=== PATIENT | male | born 1955 | race Two or more races ===

== ENCOUNTER 2018-08-26 21:32 | Inpatient (IN) | payer OTHER ==
[~2018-08-26] VITALS: Ht 175.3 cm; Wt 81.2 kg
[~2018-08-26 21:32] MED LIST: ASPI-807 PO; BENA10TA9 PO; FURO40TA5 PO; GABA-534 PO; INSU100V28 IJ; POTA8TAB3 PO; TRAM50TA2 PO
[2018-08-27] VITALS (7 sets, daily range): BP systolic 102–159; BP diastolic 59–99
--- NOTE | 2018-08-27 00:20 | NUR ---
RN NOTES: ORIENTED PT TO UNIT POLICY AND HOURLY ROUNDING, ALL MEDICATIONS TAKEN AND WILL BE SENT TO PHARMACY. ORIENTED TO USE OF CALL LIGHT SYSTEM. CONNECTED TO CONTINUOUS PULSE OXIMETRY
--- NOTE | 2018-08-27 00:20 | NUR ---
TUBE BENDER HAND NOTES PATIENT ARRIVED ON THE UNIT AT 0009 VIA GURNEY. PATIENT IS A/O X3. ABLE TO VERBALIZE NEEDS. PATIENT HAS NO SIGNS OF RESPIRATORY DISTRESS. VITAL SIGNS UPON ADMISSION: BP 159/76, PULSE 69, RESPIRATORY RATE 17, TEMPERATURE 97.8, OXYGEN SATURATION 98%. IV SITE PATENT AND INTACT. URINAL WITHIN REACH. PATIENT ON OXYGEN VIA NASAL CANNULA AT 2 L. SAFETY PRECAUTIONS IMPLEMENTED. CALL LIGHT WITHIN REACH. WILL CONTINUE TO MONITOR PATIENT THROUGHOUT THE SHIFT.
--- NOTE | 2018-08-27 00:25 | NUR ---
RN NOTES: PT REFUSED TO REMOVED GLOVES (BLACK LEATHER GLOVES) ALSO NOTED BAND AID ON FINGERS, HE CLAIMED ITS DUE TO CHECKING BLOOD SUGAR
--- NOTE | 2018-08-27 00:30 | NUR ---
RN NOTES: PT REFUSED TAKING PICTURES OF SCROTUM AREA. PT CLAIMED TESTICLE IS SWOLLEN.
[2018-08-27] MEDS ORDERED: GABA600T12 PO (01:04)
[2018-08-27] MEDS ORDERED: ASPI-1169 PO (01:04)
[2018-08-27] MEDS ORDERED: INSU100V36 SQ (01:04)
[2018-08-27] MEDS ORDERED: DICL1KIT14 TP (01:04)
[2018-08-27] MEDS ORDERED: OMEP40CA37 PO (01:04)
[2018-08-27] MEDS ORDERED: INSU100I26 SQ (01:04)
[2018-08-27] MEDS ORDERED: METF-442 PO (01:04)
[2018-08-27] MEDS ORDERED: BENA20TA9 PO (01:04)
--- NOTE | 2018-08-27 01:12 | NUR ---
RN NOTES: MD MADE AWARE ABOUT PT'S ARRIVAL, PER MD HE WILL PUT ALL ORDERS. HOME MED LIST INPUTTED IN THE COMPUTER, INCLUDING VS, HT AND WT
[2018-08-27] MEDS ORDERED: TRAMADOL HCL 50 MG TABLET PO PRN (01:30)
[2018-08-27] MEDS ORDERED: ACETAMINOPHEN 325 MG TABLET PO PRN (02:00)
[2018-08-27] MEDS ORDERED: DEXTROSE 50%-WATER 50 ML DISP.SYRIN IV PRN (02:00)
[2018-08-27] MEDS ORDERED: IPRATROPIUM NEB FS 0.5 MG/2.5 ML AMPUL.NEB NEB PRN (02:00)
[2018-08-27] MEDS ORDERED: ALBUTEROL FS 2.5 MG/3 ML VIAL.NEB NEB PRN (02:00)
[2018-08-27] MEDS ORDERED: ONDANSETRON HCL/PF 4 MG/2 ML VIAL IVP PRN (02:00)
[2018-08-27] MEDS ORDERED: MORPHINE SULFATE INJ 2 MG/ML DISP.SYRIN IV PRN ×2 (02:00→14:00)
[2018-08-27] MEDS: BLOOD SUGAR DIAGNOSTIC 1 EACH STRIP IN SCH ×4 (06:10→21:50)
[2018-08-27] MEDS: INSULIN REGULAR, HUMAN 100 UNIT/ML 3 ML VIAL SQ PRN ×3 (06:11→17:38)
[2018-08-27 06:55] LABS: BASOPHILS % (AUTO) 0.7 % (0.0-2.0); EOSINOPHILS % (AUTO) 6.5 % (0.0-6.0); HEMATOCRIT 38 % (39-51); HEMOGLOBIN 12.6 g/dL (13.5-17.5); LYMPHOCYTES # (AUTO) 1.1 /CMM (0.8-4.8); LYMPHOCYTES % (AUTO) 19.5 % (20.0-44.0); MEAN CORPUSCULAR HGB CONC 33 g/dl (31.0-36.0); MEAN CORPUSCULAR VOLUME 99 fL (80-96); MONOCYTES # (AUTO) 0.5 /CMM (0.1-1.30); MONOCYTES % (AUTO) 9.7 % (2.0-12.0); NEUTROPHILS # (AUTO) 3.6 /CMM (1.8-8.9); NEUTROPHILS % (AUTO) 63.6 % (43.0-81.0); PLATELET COUNT (AUTO) 96 /CMM (150-450); RED BLOOD CELL COUNT(AUTO) 3.85 MIL/uL (4.5-6.0); WHITE BLOOD COUNT (AUTO) 5.6 K/uL (4.3-11.0)
--- NOTE | 2018-08-27 07:02 | NUR ---
MS RN NOTES PATIENT IN BED ALERT ORIENTED X 4. NO ACUTE DISTRESS NOTED. BREATHING UNLABORED. IV ACCESS PATENT AND INTACT, NO REDNESS OR SWELLING NOTED. SAFETY MEASURES IN PLACE. CALL LIGHT WITHIN REACH. WILL CONTINUE TO MONITOR ACCORDINGLY.
[2018-08-27 07:10] LABS: ALBUMIN 2.9 g/dL (3.4-5.0); BILIRUBIN,TOTAL 1.1 mg/dL (0.2-1.0); CALCIUM, SERUM 8.2 mg/dL (8.5-10.1); CREATININE 0.9 mg/dL (0.6-1.3); MAGNESIUM 1.3 mg/dL (1.8-2.4); PHOSPHORUS 3.3 mg/dL (2.5-4.9); POTASSIUM 4.1 mmol/L (3.5-5.1); TOTAL PROTEIN, SERUM 6.2 g/dL (6.4-8.2)
--- NOTE | 2018-08-27 07:32 | NUR ---
RN CLOSING NOTES PATIENT IS IN BED, AWAKE. PATIENT HAS NO SIGNS OF RESPIRATORY DISTRESS. PATIENT IS ABLE TO VERBALIZE NEEDS. URINAL WITHIN REACH. SAFETY PRECAUTIONS IMPLEMENTED. CALL LIGHT WITHIN REACH. WILL ENDORSE TO ONCOMING AM RN.
[2018-08-27 07:39] LABS: THYROID STIMULATING HORMONE 1.073 uIU/mL (0.358-3.74)
[2018-08-27] MEDS: PANTOPRAZOLE 40 MG TABLET.DR PO SCH (08:25)
[2018-08-27] MEDS: ASPIRIN 81 MG TAB.CHEW PO SCH (08:26)
[2018-08-27] MEDS: DOCUSATE SODIUM 100 MG CAPSULE PO SCH ×2 (08:26→17:03)
[2018-08-27] MEDS: GABAPENTIN 300 MG CAPSULE PO SCH ×3 (08:26→17:34)
[2018-08-27] MEDS: FLUTICASONE/VILANTEROL 1 EACH BLST.W.DEV IH SCH (08:26)
[2018-08-27] MEDS: METFORMIN 500 MG TABLET PO SCH ×2 (08:27→17:03)
[2018-08-27] MEDS: BENAZEPRIL HCL 20 MG TABLET PO SCH (08:27)
[2018-08-27 08:46] LABS: EOSINOPHILS % (MANUAL) 6 % (0-4); LYMPHOCYTES % (MANUAL) 12 % (16-48); MONOCYTES % (MANUAL) 6 % (0-11.0); NEUTROPHILS % (MANUAL) 76 (42-76)
[2018-08-27] MEDS ORDERED: FUROSEMIDE 40 MG/4 ML VIAL IV SCH (09:00)
[2018-08-27] MEDS ORDERED: FUROSEMIDE 20 MG/2 ML VIAL IV SCH (12:30)
[2018-08-27] MEDS: Magnesium 1GM/D5W 100ML PREMIX 100 ML IV SCH ×4 (12:32→15:56)
[2018-08-27] MEDS: HYDROCODONE/APAP 5/325MG 1 EACH TABLET PO PRN (12:33)
[2018-08-27] MEDS: PREGABALIN 100 MG CAPSULE PO SCH ×2 (13:47→17:34)
--- NOTE | 2018-08-27 15:08 | NUR ---
MS RN NOTES ECHOCARDIOGRAM DONE, RESULT EF 15-20%. NOTIFIED NICK MORRISON. NO NEW ORDERS MADE AT THIS TIME.
--- NOTE | 2018-08-27 15:08 | NUR ---
INITIAL ECHO FINDINGS SHOWED EF 15-20%~. ADVISED PRELIM RESULTS TO JULIAN YOON) AND DR. HULL.
[2018-08-27] MEDS: FUROSEMIDE 20 MG/2 ML VIAL IV SCH (17:03)
--- NOTE | 2018-08-27 19:00 | NUR ---
MS RN NOTES PATIENT IN BED ALERT ORIENTED X 4. NO ACUTE DISTRESS NOTED. BREATHING UNLABORED. IV ACCESS PATENT AND INTACT, NO REDNESS OR SWELLING NOTED.DUE MEDICATIONS GIVEN, NO ASE NOTED. NEEDS ATTENDED AND ANTICIPATED. KEPT CLEAN DRY AND COMFORTABLE. ENCOURAGE TURNING AND REPOSITIONING EVERY [address] MEAS[address] IN PL[address]. CALL LIGHT WITHIN REACH. ENDORSED TO NIGHT NURSE FOR CONTINUITY OF CARE.
--- NOTE | 2018-08-27 19:40 | NUR ---
MS RN NOTES RECEIVED ON BED WATCHING TV PROGRAM,NO SOB,O2 IN USED ON AND OFF TO KEEP O2 SAT ABOVE 90%.SALINE LOCK RIGHT HAND INTACT AND PATENT.ABLE TO VERBALIZED NEEDS,CALL LIGHT IN REACH,NEEDS ANTICIPATED.
[2018-08-27] MEDS: INSULIN GLARGINE, 100 UNIT/ML CARTRIDGE SQ SCH (21:59)
--- NOTE | 2018-08-27 22:01 | NUR ---
MS RN NOTES ACCU-CHECK BLOOD SUGAR CHECK 88,ASYMPTOMATIC,NON DIAPHORETIC,EASILY AROUSABLE TO VERBAL STIMULI.ORANGE JUICE GIVEN.NO INSULIN COVERAGE PER SLIDING SCALE.LANTUS 40 UNITS HELD FOR LOW BLOOD SUGAR
--- NOTE | 2018-08-28 02:00 | NUR ---
MS RN NOTES SLEEPING,KEPT WARM AND COMFORTABLE.
--- NOTE | 2018-08-28 04:30 | NUR ---
MS RN NOTES OOB TO BSC,RADIO FREQUENCY DESIGN ENGINEER AT BEDSIDE CHANGING BED LINEN.
--- NOTE | 2018-08-28 05:30 | NUR ---
MS RN NOTES ACCU-CHECK BLOOD SUGAR CHECK 124,NO INSULIN COVERAGE PER SLIDING SCALE.
[2018-08-28] MEDS: BLOOD SUGAR DIAGNOSTIC 1 EACH STRIP IN SCH ×4 (05:31→22:19)
--- NOTE | 2018-08-28 06:30 | NUR ---
MS RN NOTES SLEPT WELL.DENIES ANY DISCOMFORTS,BLOOD SUGAR WITH IN NORMAL LIMITS.ASSIST WITH ADL'S.IN NO ACUTE DISTRESS.WILL ENDORSE TO DAY NURSE FOR VELAM.
[2018-08-28 06:36] LABS: BASOPHILS % (AUTO) 0.4 % (0.0-2.0); EOSINOPHILS % (AUTO) 6.5 % (0.0-6.0); HEMATOCRIT 39 % (39-51); HEMOGLOBIN 12.8 g/dL (13.5-17.5); LYMPHOCYTES # (AUTO) 1.6 /CMM (0.8-4.8); LYMPHOCYTES % (AUTO) 24.2 % (20.0-44.0); MEAN CORPUSCULAR HGB CONC 33 g/dl (31.0-36.0); MEAN CORPUSCULAR VOLUME 98 fL (80-96); MONOCYTES # (AUTO) 0.6 /CMM (0.1-1.30); MONOCYTES % (AUTO) 9.5 % (2.0-12.0); NEUTROPHILS # (AUTO) 3.8 /CMM (1.8-8.9); NEUTROPHILS % (AUTO) 59.4 % (43.0-81.0); PLATELET COUNT (AUTO) 98 /CMM (150-450); RED BLOOD CELL COUNT(AUTO) 3.95 MIL/uL (4.5-6.0); WHITE BLOOD COUNT (AUTO) 6.4 K/uL (4.3-11.0)
[2018-08-28 07:09] LABS: CALCIUM, SERUM 8.6 mg/dL (8.5-10.1); MAGNESIUM 2.1 mg/dL (1.8-2.4); PHOSPHORUS 4.3 mg/dL (2.5-4.9); POTASSIUM 4.5 mmol/L (3.5-5.1)
--- NOTE | 2018-08-28 07:30 | NUR ---
MS/RN Patient received Patient received from [facility]. A/O X3, vital signs stable, no fever. No shortness of breath at this time, saturation on two liters 98%. Safety measures in place, bed in low setting, side rails X3 in upright position, call light in reach. Patient aware of how to use and ask for help. Will continue to monitor and ensure safety.
[2018-08-28 07:31] LABS: THYROID STIMULATING HORMONE 0.891 uIU/mL (0.358-3.74)
[2018-08-28 08:00] VITALS: BP_SYST 138; BP_DIAS 78; BP_DIAS 98
[2018-08-28] MEDS: ASPIRIN 81 MG TAB.CHEW PO SCH (08:25)
[2018-08-28] MEDS: METFORMIN 500 MG TABLET PO SCH ×2 (08:25→17:06)
[2018-08-28] MEDS: PREGABALIN 100 MG CAPSULE PO SCH ×3 (08:25→17:07)
[2018-08-28] MEDS: DOCUSATE SODIUM 100 MG CAPSULE PO SCH ×2 (08:25→17:07)
[2018-08-28] MEDS: GABAPENTIN 300 MG CAPSULE PO SCH ×3 (08:25→17:07)
[2018-08-28] MEDS: BENAZEPRIL HCL 20 MG TABLET PO SCH (08:26)
[2018-08-28] MEDS: FUROSEMIDE 20 MG/2 ML VIAL IV SCH (08:27)
[2018-08-28] MEDS: HYDROCODONE/APAP 5/325MG 1 EACH TABLET PO PRN ×2 (08:28→21:13)
[2018-08-28] MEDS: PANTOPRAZOLE 40 MG TABLET.DR PO SCH (08:31)
[2018-08-28] MEDS: FLUTICASONE/VILANTEROL 1 EACH BLST.W.DEV IH SCH (08:32)
[2018-08-28 08:51] LABS: EOSINOPHILS % (MANUAL) 6 % (0-4); LYMPHOCYTES % (MANUAL) 29 % (16-48); MONOCYTES % (MANUAL) 3 % (0-11.0); NEUTROPHILS % (MANUAL) 62 (42-76)
--- NOTE | 2018-08-28 08:57 | NUR ---
MS/RN Medications Morning medications administered as ordered, no difficulty swallowing.
--- NOTE | 2018-08-28 11:07 | NUR ---
MS/RN Room air saturation Room air saturation 95%
[2018-08-28] MEDS: CARVEDILOL 3.125 MG TABLET PO SCH ×2 (11:12→21:14)
--- NOTE | 2018-08-28 12:10 | NUR ---
MS/RN Blood sugar Blood sugar at noon 162, three units regular insulin administered.
[2018-08-28] MEDS: FUROSEMIDE 40 MG TABLET PO SCH (12:22)
[2018-08-28] MEDS: INSULIN REGULAR, HUMAN 100 UNIT/ML 3 ML VIAL SQ PRN ×3 (12:25→22:25)
--- NOTE | 2018-08-28 13:00 | NUR ---
MS/RN S/B Dr Coleman Seen by Dr Coleman - morning labs ordered. I&O to be recorded. Follow up with urine culture results.
[2018-08-28 15:57] VITALS: BP 111/80
[2018-08-28 16:00] VITALS: BP 111/80
--- NOTE | 2018-08-28 18:22 | NUR ---
MS/RN Blood sugar Blood sugar at 5p - 185, per sliding scale, three units regular insulin administered.
--- NOTE | 2018-08-28 18:25 | NUR ---
MS/RN End note Patient remains in stable condition, time allowed to address all fears and concerns. No shortness of breath or pain at this time. Will endorse to night warehouse manager.
--- NOTE | 2018-08-28 19:30 | NUR ---
MS RN NOTES RECEIVED ON SLEEPING,AROUSABLE TO VERBAL STIMULI,BREATHING NON LABORED,O2 IN USED TO KEEP O2 SAT ABOVE 90%.SALINE LOCK RIGHT HAND INTACT AND PATENT.ISOLATION PRECAUTION FOR MRSA NARES.WILL START ON BACTROBAN ON BOTH NARES.CALL LIGHT IN REACH,NEEDS ANTICIPATED.
[2018-08-28 20:00] VITALS: BP 109/67
[2018-08-28] MEDS: MUPIROCIN OINT 2% 22 GM TUBE SCH (21:10)
[2018-08-28] MEDS: INSULIN GLARGINE, 100 UNIT/ML CARTRIDGE SQ SCH (22:26)
--- NOTE | 2018-08-28 22:30 | NUR ---
MS RN NOTES ACCU-CHECK BLOOD SUGAR CHECK 156,COVERED WITH HUMULIN R 2 UNITS PER SLIDING SCALE,ALONE WITH LANTUS 40 UNITS SCHEDULED.SNACKS PROVIDED AT BEDSIDE.
--- NOTE | 2018-08-29 05:30 | NUR ---
MS RN NOTES ACCU-CHECK BLOOD SUGAR CHECK 146,COVERED WITH HUMULIN R 2 UNITS PER SLIDING SCALE.
[2018-08-29] MEDS: BLOOD SUGAR DIAGNOSTIC 1 EACH STRIP IN SCH ×4 (05:34→21:19)
[2018-08-29] MEDS: INSULIN REGULAR, HUMAN 100 UNIT/ML 3 ML VIAL SQ PRN ×4 (05:42→21:29)
--- NOTE | 2018-08-29 06:23 | NUR ---
MS RN NOTES SLEPT WITH INTERVALS,BREATHING TREATMENT TOLERATED WELL.THIS MORNING,HE VERBALIZED HE WANTS TO GO HOME,WILL ENDORSE TO DAY NURSE FOR VELMA.
[2018-08-29 06:39] LABS: BASOPHILS % (AUTO) 0.5 % (0.0-2.0); EOSINOPHILS % (AUTO) 8.1 % (0.0-6.0); HEMATOCRIT 39 % (39-51); HEMOGLOBIN 12.7 g/dL (13.5-17.5); LYMPHOCYTES # (AUTO) 1.6 /CMM (0.8-4.8); LYMPHOCYTES % (AUTO) 24.7 % (20.0-44.0); MEAN CORPUSCULAR HGB CONC 33 g/dl (31.0-36.0); MEAN CORPUSCULAR VOLUME 99 fL (80-96); MONOCYTES # (AUTO) 0.7 /CMM (0.1-1.30); MONOCYTES % (AUTO) 10.7 % (2.0-12.0); NEUTROPHILS # (AUTO) 3.7 /CMM (1.8-8.9); PLATELET COUNT (AUTO) 101 /CMM (150-450); RED BLOOD CELL COUNT(AUTO) 3.92 MIL/uL (4.5-6.0); WHITE BLOOD COUNT (AUTO) 6.6 K/uL (4.3-11.0)
[2018-08-29 06:58] LABS: ALBUMIN 2.9 g/dL (3.4-5.0); BILIRUBIN,TOTAL 0.8 mg/dL (0.2-1.0); CALCIUM, SERUM 8.4 mg/dL (8.5-10.1); CREATININE 1.1 mg/dL (0.6-1.3); MAGNESIUM 1.7 mg/dL (1.8-2.4); PHOSPHORUS 4.6 mg/dL (2.5-4.9); POTASSIUM 4.2 mmol/L (3.5-5.1); TOTAL PROTEIN, SERUM 6.3 g/dL (6.4-8.2)
[2018-08-29] MEDS: PANTOPRAZOLE 40 MG TABLET.DR PO SCH (07:33)
--- NOTE | 2018-08-29 07:35 | NUR ---
MS RN OPENING NOTES RECEIVED PT AWAKE IN BED IN NO ACUTE SIGNS OF DISTRESS. A/O X3. ABLE TO MAKE NEEDS KNOWN, DENIES PAIN OR OR ANY DISCOMFORTS AT THIS TIME. ISOLATION PRECAUTIONS FOR MRSA OF NARES MAINTAINED. ON O2 VIA N/C @ 2LPM, TOLERATING WELL WITH NO SOB NOTED. SALINE LOCK ON RIGHT HAND INTACT AND PATENT. CALL LIGHT IN REACH. WILL CONTINUE TO MONITOR PT ACCORDINGLY.
[2018-08-29 08:00] VITALS: BP 117/93
[2018-08-29] MEDS: ASPIRIN 81 MG TAB.CHEW PO SCH (08:14)
[2018-08-29] MEDS: METFORMIN 500 MG TABLET PO SCH ×2 (08:14→16:12)
[2018-08-29] MEDS: FUROSEMIDE 40 MG TABLET PO SCH (08:14)
[2018-08-29] MEDS: GABAPENTIN 300 MG CAPSULE PO SCH ×3 (08:14→16:12)
[2018-08-29] MEDS: DOCUSATE SODIUM 100 MG CAPSULE PO SCH ×2 (08:14→16:12)
[2018-08-29] MEDS: PREGABALIN 100 MG CAPSULE PO SCH ×3 (08:14→16:12)
[2018-08-29] MEDS: FLUTICASONE/VILANTEROL 1 EACH BLST.W.DEV IH SCH (08:17)
[2018-08-29] MEDS: CARVEDILOL 3.125 MG TABLET PO SCH ×2 (08:18→21:14)
[2018-08-29] MEDS: BENAZEPRIL HCL 20 MG TABLET PO SCH (08:18)
[2018-08-29] MEDS: MUPIROCIN OINT 2% 22 GM TUBE SCH ×2 (08:18→21:18)
[2018-08-29] MEDS: Magnesium 1GM/D5W 100ML PREMIX 100 ML IV SCH ×2 (10:38→11:42)
[2018-08-29 11:00] LABS: BILIRUBIN,URINE NEGATIVE (NEGATIVE); BLOOD, URINE NEGATIVE Ery/uL (NEGATIVE); COLOR,URINE DARK YELLO (YELLOW); KETONES,URINE NEGATIVE (NEGATIVE); LEUKOCYTE ESTERASE ,URINE NEGATIVE (NEGATIVE); NITRITE, URINE NEGATIVE (NEGATIVE); PROTEIN,URINE NEGATIVE (NEGATIVE); UGLUCOSE NEGATIVE (NEGATIVE)
[2018-08-29 11:01] LABS: APPEARANCE,URINE SLIGHTLY HAZY (CLEAR)
[2018-08-29 11:28] LABS: BACTERIA,URINE Many /HPF (None Seen); RBC,URINE 0-2 /HPF (0-2); SQUAMOUS EPITHELIAL CELL,UR Rare /HPF (None Seen); WBC,URINE 0-2 /HPF (0-3)
--- NOTE | 2018-08-29 11:42 | NUR ---
RN NOTES PT NOTED WITH LOW LEVEL MG 1.7 TODAY, REPLACED WITH MG 1/100 ML D5W X 2 DOSES. WILL CONTINUE TO MONITOR.
[2018-08-29 16:00] VITALS: BP 126/88
[2018-08-29] MEDS: HYDROCODONE/APAP 5/325MG 1 EACH TABLET PO PRN ×2 (16:22→21:14)
--- NOTE | 2018-08-29 16:23 | NUR ---
RN NOTES/ PAIN MANAGEMENT PT COMPLAINED OF ACHING PAIN ON BOTH HANDS. PRN NORCO 5/325 MG TAB PO ADMINISTRED AT 1622. WILL CONTINUE TO MONITOR AND REASSESS PT.
--- NOTE | 2018-08-29 18:35 | NUR ---
MS RN CLOSING NOTES PT AWAKE AND RESTING IN BED WATCHING TV. A/O X3. ABLE TO MAKE NEEDS KNOWN, DENIES PAIN OR OR ANY DISCOMFORTS AT THIS TIME. ISOLATION PRECAUTIONS FOR MRSA OF NARES MAINTAINED. PT ON ROOM AIR AT THIS TIME AND TOLERATING WELL WITH NO SOB NOTED, SP02 95-96%. SALINE LOCK ON RIGHT HAND INTACT AND PATENT. CALL LIGHT IN REACH. ALL NEEDS AND CARE ATTENDED WELL. WILL ENDORSE TO CATERPILLAR OPERATOR NURSE FOR VELMA.
--- NOTE | 2018-08-29 19:40 | NUR ---
MS RN NOTES RECEIVED ON BED A/O X4,BREATHING NON LABORED,O2 IN USED AT 2L/NC ON AND OFF.ISOLATION PRECAUTION FOR MRSA NARES,ON BACTROBAN.SALINE LOCK RIGHT HAND INTACT AND PATENT.FALL PRECAUTION OBSERVED.CALL LIGHT IN REACH,NEEDS ANTICIPATED.
--- NOTE | 2018-08-29 19:45 | NUR ---
MS RN NOTES DAUGHTER CAME WITH SON,EDUCATE ABOUT ISOLATION PRECAUTION,ASKED TO WEAR PROTECTIVE GOWN AND MASK.INFORMED BRIEFLY REGARDING PATIENT STATUS.
[2018-08-29] MEDS: INSULIN GLARGINE, 100 UNIT/ML CARTRIDGE SQ SCH (21:30)
--- NOTE | 2018-08-29 22:00 | NUR ---
MS RN NOTES ACCU-CHECK BLOOD SUGAR CHECK 217,COVERED WITH HUMULIN R 4 UNITS PER SLIDING SCALE,ALONG WITH LANTUS 40 UNITS SCHEDULED.SNACKS PROVIDED AT BEDSIDE.
--- NOTE | 2018-08-30 05:30 | NUR ---
MS RN NOTES ACCU-CHECK BLOOD SUGAR CHECK 193,COVERED WITH HUMULIN R 3 UNITS PER SLIDING SCALE.
[2018-08-30] MEDS: BLOOD SUGAR DIAGNOSTIC 1 EACH STRIP IN SCH ×2 (05:31→11:18)
[2018-08-30] MEDS: INSULIN REGULAR, HUMAN 100 UNIT/ML 3 ML VIAL SQ PRN (05:55)
[2018-08-30 06:34] VITALS: BP 143/79
[2018-08-30 06:38] LABS: CALCIUM, SERUM 7.9 mg/dL (8.5-10.1); CREATININE 1.1 mg/dL (0.6-1.3); MAGNESIUM 1.7 mg/dL (1.8-2.4); POTASSIUM 4.3 mmol/L (3.5-5.1)
--- NOTE | 2018-08-30 06:56 | NUR ---
MS RN NOTES SLEPT WELL AT NIGHT WITH NORCO,NO SOB,MILD WHEEZING ON EXERTION.O2 SAT 97% ON ROOM AIR.IN NO ACUTE DISTRESS.
--- NOTE | 2018-08-30 07:30 | NUR ---
MS RN OPENING NOTES RECEIVED PT LAYING IN BED WITH HOB ELEVATED. PT IS A/O X3, AFEBRILE. RESPIRATIONS ARE EVEN AND UNLABORED, NOT IN ANY ACUTE DISTRESS NOTED. DENIES ANY CHEST PAIN, SOB, N/V. PT IS ON RA SATURATING 97%. IV SITE TO RIGHT HAND INTACT, NO INFILTRATION NOTED. DRESSING KEPT CLEAN AND DRY. SAFETY MEASURES ARE IN PLACE. INSTRUCTED PT TO USE CALL LIGHT WHEN ASSISTANCE IS NEEDED, CALL LIGHT IS LEFT WITHIN REACH. WILL MONITOR THROUGHOUT SHIFT FOR CONTINUITY OF CARE.
[2018-08-30] MEDS: PANTOPRAZOLE 40 MG TABLET.DR PO SCH (07:44)
[2018-08-30] MEDS: Magnesium 1GM/D5W 100ML PREMIX 100 ML IV SCH ×2 (07:50→09:02)
[2018-08-30 08:00] VITALS: BP_SYST 109; BP_DIAS 74; BP_DIAS 79
[2018-08-30] MEDS: FUROSEMIDE 40 MG TABLET PO SCH (08:10)
[2018-08-30] MEDS: ASPIRIN 81 MG TAB.CHEW PO SCH (08:10)
[2018-08-30] MEDS: DOCUSATE SODIUM 100 MG CAPSULE PO SCH (08:10)
[2018-08-30] MEDS: GABAPENTIN 300 MG CAPSULE PO SCH ×2 (08:10→12:02)
[2018-08-30] MEDS: METFORMIN 500 MG TABLET PO SCH (08:10)
[2018-08-30 08:11] VITALS: BP 109/79
[2018-08-30] MEDS: PREGABALIN 100 MG CAPSULE PO SCH ×2 (08:11→12:02)
[2018-08-30] MEDS: BENAZEPRIL HCL 20 MG TABLET PO SCH (08:11)
[2018-08-30] MEDS: CARVEDILOL 3.125 MG TABLET PO SCH (08:11)
[2018-08-30] MEDS: FLUTICASONE/VILANTEROL 1 EACH BLST.W.DEV IH SCH (08:12)
[2018-08-30] MEDS: MUPIROCIN OINT 2% 22 GM TUBE SCH (08:14)
[2018-08-30] MEDS ORDERED: CARV3.122 PO (09:45)
[2018-08-30] MEDS ORDERED: FLUT1BLS IH (09:45)
--- NOTE | 2018-08-30 13:00 | NUR ---
MS MANAGER OF PHOTOGRAPHY NOTE PT DISCHARGED TO HOME WITH HOME HEALTH ACCOMPANIED BY FRIEND MITZI VIA PERSONAL VEHICLE. PT IS A/O X3, AFEBRILE. RESPIRATIONS ARE EVEN AND UNLABORED, NOT IN ANY ACUTE DISTRESS NOTED. PT DENIES ANY PAIN, SOB, N/V. PT STABLE ON RA, SATURATING 97%. EXPLAINED DISCHARGE PAPERWORK TO PT WITH VERBAL AND WRITTEN UNDERSTANDING. INFORMED PT THAT HIS INSURANCE WILL ARRANGE HOME HEALTH PER MELISSA JARAMILLO AND TO KEEP SCHEDULED APPT WITH PCP THIS SATURDAY. ALL BELONGINGS SENT WITH PT INCLUDING CIGARETTES, PHONE, ON SITE MANAGER AND MEDICATIONS. PICTURES TAKEN TO RIGHT FOOT, RIGHT KNEE AND BLE. SKIN REMAINS INTACT, KEPT CLEAN AND DRY. PT DISCHARGE TO HOME IN MEDICALLY STABLE CONDITION.
== END 2018-08-30 17:30 | disposition home health service (06) | DRG 133 ==
LOC: UNDOADMIN 22:09 → TELE 22:09 → MED 08-27 10:47
PROVIDERS: ADMIT Internal Medicine; ATTEND Internal Medicine
DX: J96.01 Acute respiratory failure with hypoxia (principal); I21.A1 Myocardial infarction type 2; I50.23 Acute on chronic systolic (congestive) heart failure; E44.0 Moderate protein-calorie malnutrition; I11.0 Hypertensive heart disease with heart failure; E11.42 Type 2 diabetes mellitus with diabetic polyneuropathy; E11.51 Type 2 diabetes mellitus with diabetic peripheral angiopathy without gangrene; E11.65 Type 2 diabetes mellitus with hyperglycemia; E83.42 Hypomagnesemia; E78.5 Hyperlipidemia, unspecified; F17.210 Nicotine dependence, cigarettes, uncomplicated; M19.90 Unspecified osteoarthritis, unspecified site; D64.9 Anemia, unspecified; F41.9 Anxiety disorder, unspecified; F12.20 Cannabis dependence, uncomplicated; Z68.26 Body mass index [BMI] 26.0-26.9, adult; G89.4 Chronic pain syndrome
CPT/HCPCS: 36415; 71045-TC; 80048-TC; 80053-TC; 80061-TC; 81000-TC; 82962-TC; 83540-TC; 83735-TC; 83880; 84100-TC; 84443-TC; 84484-TC; 85025-TC; 87081-TC; 87086-TC; 93307-TC; 97110-TC; 97116-TC; 97530-TC; G0378; J1815; J1940; J3475; J7050

== ENCOUNTER 2018-09-12 18:47 | Inpatient (IN) | payer OTHER ==
[~2018-09-12] VITALS: Ht 175.3 cm; Wt 86.7 kg
[~2018-09-12 18:47] MED LIST changes: -BENA10TA9 PO; +BENA20TA9 PO; +CARV3.122 PO; +DICL1KIT14 TP; +FLUT1BLS IH; +INSU100I26 SQ; +INSU100V36 SQ; +METF-442 PO; +OMEP40CA37 PO
[2018-09-12 21:20] VITALS: BP 111/79
--- NOTE | 2018-09-12 22:00 | NUR ---
TELE/RN OPENING NOTES PT RECEIVED TO UNIT VIA DEXTER, DIRECT ADMIT FROM [facility]. A/OX3. PLACED ON 2L O2 VIA NC, BREATHING IS EVEN AND UNLABORED. EQUAL RISE/FALL OF THE CHEST. DENIES SOB, IN NO ACUTE DISTRESS. NOTES ABDOMINAL PAIN 08/03, DOES NOT WANT MEDICATION AT THIS TIME. IV TO LFA PATENT AND INTACT. ORIENTED PT TO ROOM AND CALL LIGHT. HOB ELEVATED, BILAT. UPPER SIDE RAILS IN PLACE. URINAL PROVIDED. PLACED ON NET WEB DEVELOPER SHOWING SR 72. NO NEEDS EXPRESSED AT THIS TIME. BED IN LOW/LOCKED POSITION WITH CALL LIGHT IN REACH. WILL CONTINUE TO MONITOR
--- NOTE | 2018-09-12 22:20 | NUR ---
TELE/RN NOTES PAGED [facility] FOR ADMITTING ORDERS.
--- NOTE | 2018-09-12 23:15 | NUR ---
TELE/RN NOTES KLEVER JOYCE NP AT BEDSIDE TO ASSESS PT.
[2018-09-12] MEDS ORDERED: ONDANSETRON HCL/PF 4 MG/2 ML VIAL IVP PRN (23:30)
[2018-09-12] MEDS ORDERED: ZOLPIDEM TARTRATE 5 MG TABLET PO PRN (23:30)
[2018-09-12] MEDS ORDERED: ACETAMINOPHEN 325 MG TABLET PO PRN (23:30)
[2018-09-12] MEDS ORDERED: DEXTROSE 50%-WATER 50 ML DISP.SYRIN IV PRN (23:30)
[2018-09-12] MEDS ORDERED: MAG HYDROX/AL HYDROX/SIMETH 30 ML UDC PO PRN (23:30)
[2018-09-12] MEDS ORDERED: Z GUARD REMEDY 2 OZ OINT TP PRN (23:30)
[2018-09-12] MEDS ORDERED: TRAMADOL HCL 50 MG TABLET PO PRN (23:30)
[2018-09-12] MEDS ORDERED: HYDROCODONE/APAP 5/325MG 1 EACH TABLET PO PRN (23:30)
[2018-09-12] MEDS ORDERED: MAGNESIUM HYDROXIDE 30 ML UDC PO PRN (23:30)
[2018-09-12] MEDS: INSULIN GLARGINE, 100 UNIT/ML CARTRIDGE SQ SCH (23:45)
[2018-09-13] VITALS: BP 102/72
--- NOTE | 2018-09-13 00:41 | NUR ---
TELE/RN NOTES BLOOD SUGAR 150. PT REFUSED SCHEDULED LANTUS. PT RECEIVED 10 UNITS AT [facility]. DOES NOT WANT SNACKS. WANTS TO BEGIN INSULIN COVERAGE IN THE MORNING
[2018-09-13 04:00] VITALS: BP 122/88
[2018-09-13 06:14] LABS: BASOPHILS % (AUTO) 0.4 % (0.0-2.0); EOSINOPHILS % (AUTO) 5.7 % (0.0-6.0); HEMATOCRIT 40 % (39-51); HEMOGLOBIN 13.3 g/dL (13.5-17.5); LYMPHOCYTES # (AUTO) 1.7 /CMM (0.8-4.8); LYMPHOCYTES % (AUTO) 22.2 % (20.0-44.0); MEAN CORPUSCULAR HGB CONC 33 g/dl (31.0-36.0); MEAN CORPUSCULAR VOLUME 97 fL (80-96); MONOCYTES # (AUTO) 0.7 /CMM (0.1-1.30); MONOCYTES % (AUTO) 9.9 % (2.0-12.0); NEUTROPHILS # (AUTO) 4.6 /CMM (1.8-8.9); NEUTROPHILS % (AUTO) 61.8 % (43.0-81.0); PLATELET COUNT (AUTO) 102 /CMM (150-450); RED BLOOD CELL COUNT(AUTO) 4.13 MIL/uL (4.5-6.0); WHITE BLOOD COUNT (AUTO) 7.4 K/uL (4.3-11.0)
[2018-09-13 06:22] LABS: CALCIUM, SERUM 8.1 mg/dL (8.5-10.1); CREATININE 1.1 mg/dL (0.6-1.3); PHOSPHORUS 4.6 mg/dL (2.5-4.9); POTASSIUM 4.5 mmol/L (3.5-5.1)
[2018-09-13 06:31] LABS: THYROID STIMULATING HORMONE 0.973 uIU/mL (0.358-3.74)
[2018-09-13] MEDS: BLOOD SUGAR DIAGNOSTIC 1 EACH STRIP IN SCH ×4 (06:46→21:23)
[2018-09-13] MEDS: INSULIN REGULAR, HUMAN 100 UNIT/ML 3 ML VIAL SQ PRN ×4 (06:47→21:25)
--- NOTE | 2018-09-13 07:30 | NUR ---
TELE/RN CLOSING NOTES PT RESTING COMFORTABLY IN BED. ON 2L O2 VIA NC, BREATHING IS EVEN AND UNLABORED. DENIES SOB AND PAIN AT TH IS TIME, IN NO ACUTE DISTRESS. IV TO LFA PATENT AND INTACT. BILAT. UPPER SIDE RAILS IN PLACE. BED ALARM ON FOR SAFETY. RUG CUTTER HELPER SHOWING SR 80'S. HOME MEDS SIGNED AND WILL SEND DOWN TO PHARMACY. BED REMAINS IN LOW/LOCKED POSITION WITH CALL LIGHT IN REACH. BED ALARM ON FOR SAFETY AND HOB ELEVATED. ENDORSED TO DAY SHIFT RN VELMA.
--- NOTE | 2018-09-13 07:43 | NUR ---
FIELD MECHANICAL METER TESTER OPENING NOTES RECEIVED PT IN BED, INTERMITTENTLY DOZING OFF, EASILY AROUSED. A/O X3-4. ON SUPPLEMENTAL O2 AT 2LPM, WITH NO ACUTE RESPIRATORY DISTRESS NOTED. PT DENIES ANY PAIN. PT CONCERN ABOUT HIS FLUID IN HIS LUNGS IF IT HAS GONE DOWN TOO ASK MD, AND IF HE CAN BE DISCHARGED TODAY WELL. RN ANSWERED WILL FOLLOW UP WITH THE HOSPITALIST TODAY AND WILL UPDATE FOR PT FOR THE PLAN OF CARE. PT ON TELEMONITORING NSR, HR 80. LFA G20 SL, FLUSHED WITH NS, INTACT AND OPERATIONAL. PT KEPT COMFORTABLE. PT'S BED IN LOWEST, LOCKED POSITION WITH SR X2. CALL LIGHT KEPT WITHIN REACH. WILL CONTINUE PLAN OF CARE.
[2018-09-13 08:00] VITALS: BP 125/82
[2018-09-13] MEDS: FUROSEMIDE 40 MG TABLET PO SCH (08:13)
[2018-09-13] MEDS: ASPIRIN 81 MG TAB.CHEW PO SCH (08:13)
[2018-09-13] MEDS: PANTOPRAZOLE 40 MG TABLET.DR PO SCH (08:13)
[2018-09-13] MEDS: CARVEDILOL 3.125 MG TABLET PO SCH ×2 (08:14→17:02)
[2018-09-13 08:16] LABS: MAGNESIUM 1.2 mg/dL (1.8-2.4)
[2018-09-13] MEDS: BENAZEPRIL HCL 20 MG TABLET PO SCH (08:16)
[2018-09-13] MEDS ORDERED: VOLTAREN TP SCH (09:00)
[2018-09-13] MEDS: FLUTICASONE/VILANTEROL 1 EACH BLST.W.DEV IH SCH (09:20)
[2018-09-13] MEDS: POTASSIUM CHLORIDE 10 MEQ TABLET.SA PO SCH (09:20)
[2018-09-13] MEDS: GABAPENTIN 300 MG CAPSULE PO SCH ×3 (09:20→17:01)
[2018-09-13] MEDS ORDERED: MAGNESIUM OXIDE 400 MG TABLET PO ONE (10:00)
--- NOTE | 2018-09-13 12:30 | NUR ---
MS RN NOTES PT CURRENTLY IN THE BATHROOM. ADVISOR CONSULTANT CC MADE HER ROUNDS AND SPOKE TO RN/ME. INFORMED ADVISOR CONSULTANT CC PT'S AND SISTER CONCERN REGARDING TEST TO DETECT SLEEP APNEA. ADVISOR CONSULTANT CC STATED WE DON'T DO SLEEP STUDY HERE. AND REGARDING ORTHOPEDIC CAST SPECIALIST THAT THEY CAN SPEAK TO REGARDING GOING HOME. ADVISOR CONSULTANT CC AWARE. NO NEW ORDERS AT THIS MOMENT. ADVISOR CONSULTANT CC WILL COME BACK TO TALK TO PT PERSONALLY AFTER PT GO TO THE BATHROOM.
[2018-09-13] MEDS ORDERED: GABA600T12 PO (14:03)
[2018-09-13] MEDS ORDERED: HYDROCODONE/APAP 5/325MG 1 EACH TABLET PO ONE (15:00)
[2018-09-13] MEDS: SENNOSIDES/DOCUSATE SODIUM 1 TAB TABLET PO SCH (15:16)
[2018-09-13] MEDS: DOCUSATE SODIUM 100 MG CAPSULE PO SCH ×2 (15:16→17:01)
[2018-09-13 16:00] VITALS: BP 113/74
[2018-09-13] MEDS: NICOTINE PATCH (7MG) 7 MG PATCH.TD24 TD SCH (18:11)
--- NOTE | 2018-09-13 18:36 | NUR ---
MS RN CLOSING NOTES PT REMAINS IN BED, INTERMITTENTLY DOZING OFF, EASILY AROUSED. A/O X3-4. ON SUPPLEMENTAL O2 AT 2LPM, WITH NO ACUTE RESPIRATORY DISTRESS NOTED. PT DENIES ANY PAIN. SEEN AND SPOKE TO CLINICAL RESEARCH ADMINISTRATOR CC THIS AFTERNOON, CM CONSULT FOR DISCHARGE ON HOLD AT THIS MOMENT. PT ALSO CLAIMS HE HAS VOLTAREN GEL NEWLY OPENED WHEN HE GOT ADMITTED LAST NIGHT AND A NURSE TOK IT AND DIDN'T GIVE IT BACK. PHARMACY STATED WE DON'T HAVE ALTERNATIVE FOR VOLTAREN. JUAN/MELINDA MADE AWARE. ASKED TO CALL RN FROM LAST NIGHT/MARKY, CALLED AND LEFT MESSAGE TO CALL UNIT BACK FOR VERIFICATION.PT HAS PIV LFA G20 SL, FLUSHED WITH NS, INTACT AND OPERATIONAL. PT KEPT COMFORTABLE. ALL NEEDS AND CARE ATTENDED. PT'S BED IN LOWEST, LOCKED POSITION WITH SR X2. CALL LIGHT KEPT WITHIN REACH. WILL ENDORSE TO NIGHT NURSE FOR VELMA.
--- NOTE | 2018-09-13 18:48 | NUR ---
MS RN NOTES PT'S DAUGHTER PRESENT BEDSIDE. CONCERNED OF UNDER EYES PUFFINESS. SHE STATED IT IS NEW. PT VERBALIZED IT'S BEEN THERE FOR 3DAYS, MOSTLY IN THE MORNING. PT ADDED NO REDNESS, NO ITCHINESS AND NO PAIN. MAKE UP ARRANGER CC MADE AWARE. WILL CONTINUE TO MONITOR.
--- NOTE | 2018-09-13 19:19 | NUR ---
MS RN RECEIVE PT IN BED A/O X 3, RESPIRATIONS EVEN AND UNLABORED, NO SOB NOTED, NO DISTRESS, SAFETY MEASURES IN PLACE. WILL CONTINUE TO MONITOR.
[2018-09-13 20:00] VITALS: BP 101/51
[2018-09-13] MEDS: INSULIN GLARGINE, 100 UNIT/ML CARTRIDGE SQ SCH (21:24)
[2018-09-14] MEDS: BLOOD SUGAR DIAGNOSTIC 1 EACH STRIP IN SCH ×2 (05:58→11:32)
[2018-09-14] MEDS: INSULIN REGULAR, HUMAN 100 UNIT/ML 3 ML VIAL SQ PRN ×2 (06:00→12:03)
--- NOTE | 2018-09-14 06:19 | NUR ---
MS RN ASLEEP AND EASILY AWAKEN, NO COMPLAIN OF ABDOMINAL PAIN, N/V. RESPIRATION EVEN AND UNLABORED, STABLE AND NOT IN DISTRESS, SLEPT WELL, AM CARE RENDERED, AFEBRILE. NEEDS ATTENDED AND ANTICIPATED, KEPT CLEAN AND DRY AND COMFORTABLE. SAFETY MEASURES AT ALL TIMES. ENDORSE TO THE NEXT SHIFT.
[2018-09-14 07:09] LABS: BASOPHILS % (AUTO) 0.5 % (0.0-2.0); EOSINOPHILS % (AUTO) 12.1 % (0.0-6.0); HEMATOCRIT 38 % (39-51); HEMOGLOBIN 12.4 g/dL (13.5-17.5); LYMPHOCYTES # (AUTO) 1.5 /CMM (0.8-4.8); LYMPHOCYTES % (AUTO) 25.4 % (20.0-44.0); MEAN CORPUSCULAR HGB CONC 33 g/dl (31.0-36.0); MEAN CORPUSCULAR VOLUME 97 fL (80-96); MONOCYTES # (AUTO) 0.6 /CMM (0.1-1.30); MONOCYTES % (AUTO) 9.8 % (2.0-12.0); NEUTROPHILS # (AUTO) 3.1 /CMM (1.8-8.9); NEUTROPHILS % (AUTO) 52.2 % (43.0-81.0); PLATELET COUNT (AUTO) 95 /CMM (150-450); RED BLOOD CELL COUNT(AUTO) 3.87 MIL/uL (4.5-6.0); WHITE BLOOD COUNT (AUTO) 5.9 K/uL (4.3-11.0)
--- NOTE | 2018-09-14 07:21 | NUR ---
RN OPENING NOTES PT AWAKE AND WALKING HALLWAY WITH FWW. NO COMPLAINTS OF PAIN, SOB OR DISTRESS AT THIS TIME. PT HAS A LEFT FOREARM #20 IV, INTACT AND PATENT. SAFETY PRECAUTIONS IN PLACE, BED IN LOWEST LOCKED POSITION, X2 SIDE RAILS UP AND CALL LIGHT WITHIN REACH. WILL CONTINUE TO MONITOR.
[2018-09-14 07:42] LABS: CREATININE 0.9 mg/dL (0.6-1.3); MAGNESIUM 1.5 mg/dL (1.8-2.4); PHOSPHORUS 3.7 mg/dL (2.5-4.9); POTASSIUM 4.3 mmol/L (3.5-5.1)
[2018-09-14 08:00] VITALS: BP 102/67
[2018-09-14 08:08] LABS: EOSINOPHILS % (MANUAL) 8 % (0-4); LYMPHOCYTES % (MANUAL) 27 % (16-48); MONOCYTES % (MANUAL) 3 % (0-11.0); NEUTROPHILS % (MANUAL) 62 (42-76)
[2018-09-14] MEDS: GABAPENTIN 300 MG CAPSULE PO SCH ×2 (08:26→12:03)
[2018-09-14] MEDS: DOCUSATE SODIUM 100 MG CAPSULE PO SCH (08:26)
[2018-09-14] MEDS: PANTOPRAZOLE 40 MG TABLET.DR PO SCH (08:26)
[2018-09-14] MEDS: POTASSIUM CHLORIDE 10 MEQ TABLET.SA PO SCH (08:26)
[2018-09-14] MEDS: ASPIRIN 81 MG TAB.CHEW PO SCH (08:26)
[2018-09-14 08:27] VITALS: BP 102/67
[2018-09-14] MEDS: CARVEDILOL 3.125 MG TABLET PO SCH (08:27)
[2018-09-14] MEDS: BENAZEPRIL HCL 20 MG TABLET PO SCH (08:27)
[2018-09-14] MEDS: FUROSEMIDE 40 MG TABLET PO SCH (08:27)
[2018-09-14] MEDS: NICOTINE PATCH (7MG) 7 MG PATCH.TD24 TD SCH (08:28)
[2018-09-14] MEDS: SENNOSIDES/DOCUSATE SODIUM 1 TAB TABLET PO SCH (08:28)
[2018-09-14] MEDS: FLUTICASONE/VILANTEROL 1 EACH BLST.W.DEV IH SCH (08:28)
[2018-09-14] MEDS: Magnesium 1GM/D5W 100ML PREMIX 100 ML IV SCH ×2 (10:22→11:32)
--- NOTE | 2018-09-14 15:15 | NUR ---
PATTERN DRAFTER NOTES PT STABLE AT DISCHARGE. ALL BELONGINGS TAKEN WITH PATIENT. IV AND ID REMOVED. ALL DISCHARGE PAPERWORK EXPLAINED, COPIED, AND GIVEN TO PATIENT. PT RETURNING HOME IN PRIVATE CAR. PT TRANSPORTED OFF OF UNIT VIA GURNEY, ESCORTED BY MIRIAM AND NGUYỄN HERNANDEZ.
[2018-09-30] MEDS ORDERED: FURO-144 PO (15:50)
== END 2018-09-14 15:15 | disposition home or self-care (01) | DRG 48 ==
LOC: TELE 21:46 → MED 09-13 08:43
PROVIDERS: ADMIT Nurse Practitioner Acute Care; ATTEND Nurse Practitioner Acute Care
DX: E11.43 Type 2 diabetes mellitus with diabetic autonomic (poly)neuropathy (principal); D69.6 Thrombocytopenia, unspecified; I11.0 Hypertensive heart disease with heart failure; I50.22 Chronic systolic (congestive) heart failure; E11.42 Type 2 diabetes mellitus with diabetic polyneuropathy; E11.65 Type 2 diabetes mellitus with hyperglycemia; K31.84 Gastroparesis; K59.00 Constipation, unspecified; M19.90 Unspecified osteoarthritis, unspecified site; E78.5 Hyperlipidemia, unspecified; F41.9 Anxiety disorder, unspecified; Z72.0 Tobacco use; Z82.49 Family history of ischemic heart disease and other diseases of the circulatory system; Z80.0 Family history of malignant neoplasm of digestive organs; Z97.0 Presence of artificial eye; Z79.82 Long term (current) use of aspirin
CPT/HCPCS: 36415; 71045-TC; 74018; 80048-TC; 80061-TC; 82962-TC; 83690-TC; 83735-TC; 84100-TC; 84443-TC; 85025-TC; 87081-TC; G0378; J1815; J3475; J7050

== ENCOUNTER 2018-09-29 23:08 | Inpatient (IN) | payer OTHER ==
[~2018-09-29] VITALS: Ht 175.3 cm; Wt 79.8 kg
[~2018-09-29 23:08] MED LIST changes: -GABA-534 PO; +GABA600T12 PO
[2018-09-30] MEDS ORDERED: ZOLPIDEM TARTRATE 5 MG TABLET PO PRN
[2018-09-30] MEDS ORDERED: ACETAMINOPHEN 325 MG TABLET PO PRN
[2018-09-30] MEDS ORDERED: MAGNESIUM HYDROXIDE 30 ML UDC PO PRN
[2018-09-30] MEDS ORDERED: HYDROCODONE/APAP 5/325MG 1 EACH TABLET PO PRN
[2018-09-30] MEDS ORDERED: MORPHINE SULFATE INJ 2 MG/ML DISP.SYRIN IV PRN
[2018-09-30] MEDS ORDERED: MAG HYDROX/AL HYDROX/SIMETH 30 ML UDC PO PRN
[2018-09-30] MEDS ORDERED: ONDANSETRON HCL/PF 4 MG/2 ML VIAL IVP PRN
[2018-09-30 02:50] VITALS: BP 118/56
[2018-09-30 04:00] VITALS: BP 120/60
[2018-09-30] MEDS ORDERED: UMEC1BLS IH (06:19)
[2018-09-30 08:00] VITALS: BP 129/90
[2018-09-30 08:53] LABS: BASOPHILS % (AUTO) 0.5 % (0.0-2.0); EOSINOPHILS % (AUTO) 2.7 % (0.0-6.0); HEMATOCRIT 39 % (39-51); HEMOGLOBIN 12.8 g/dL (13.5-17.5); LYMPHOCYTES # (AUTO) 1.2 /CMM (0.8-4.8); LYMPHOCYTES % (AUTO) 26.9 % (20.0-44.0); MEAN CORPUSCULAR HGB CONC 33 g/dl (31.0-36.0); MEAN CORPUSCULAR VOLUME 96 fL (80-96); MONOCYTES # (AUTO) 0.5 /CMM (0.1-1.30); MONOCYTES % (AUTO) 10.6 % (2.0-12.0); NEUTROPHILS # (AUTO) 2.6 /CMM (1.8-8.9); NEUTROPHILS % (AUTO) 59.3 % (43.0-81.0); PLATELET COUNT (AUTO) 90 /CMM (150-450); RED BLOOD CELL COUNT(AUTO) 4.05 MIL/uL (4.5-6.0); WHITE BLOOD COUNT (AUTO) 4.4 K/uL (4.3-11.0)
[2018-09-30 08:59] LABS: CREATININE 1.4 mg/dL (0.6-1.3); MAGNESIUM 1.6 mg/dL (1.8-2.4); PHOSPHORUS 4.8 mg/dL (2.5-4.9); POTASSIUM 5.1 mmol/L (3.5-5.1); THYROID STIMULATING HORMONE 1.476 uIU/mL (0.358-3.74)
[2018-09-30] MEDS: BLOOD SUGAR DIAGNOSTIC 1 EACH STRIP IN SCH ×3 (10:00→16:12)
[2018-09-30] MEDS ORDERED: INSULIN REGULAR, HUMAN 100 UNIT/ML 3 ML VIAL SQ PRN (10:00)
[2018-09-30] MEDS ORDERED: DEXTROSE 50%-WATER 50 ML DISP.SYRIN IV PRN (10:00)
[2018-09-30] MEDS ORDERED: CARV3.122 PO (10:05)
[2018-09-30] MEDS ORDERED: DULO20CA PO (10:05)
[2018-09-30 12:00] VITALS: BP 140/98
[2018-09-30] MEDS ORDERED: GABAPENTIN 400 MG CAPSULE PO SCH (13:30)
[2018-09-30] MEDS ORDERED: IPRATROPIUM NEB FS 0.5 MG/2.5 ML AMPUL.NEB NEB PRN (13:30)
[2018-09-30] MEDS ORDERED: INSULIN REGULAR, HUMAN 100 UNIT/ML 3 ML VIAL IJ SCH (13:30)
[2018-09-30] MEDS ORDERED: ALBUTEROL FS 2.5 MG/0.5 ML VIAL.NEB NEB PRN (13:30)
[2018-09-30] MEDS ORDERED: BUMETANIDE INJ 0.25 MG/ML VIAL IV ONE (14:30)
[2018-09-30] MEDS ORDERED: Magnesium 1GM/D5W 100ML PREMIX 100 ML IV SCH (14:30)
[2018-09-30] MEDS ORDERED: GABAPENTIN 300 MG CAPSULE PO SCH (14:30)
[2018-09-30] MEDS ORDERED: MAGNESIUM OXIDE 400 MG TABLET PO STA (15:44)
[2018-09-30] MEDS ORDERED: POTASSIUM CHLORIDE 20 MEQ TAB.PRT.SR PO STA (15:44)
[2018-09-30] MEDS ORDERED: FURO-144 PO (15:50)
[2018-09-30 16:00] VITALS: BP 128/95
[2018-09-30] MEDS ORDERED: FUROSEMIDE 20 MG/2 ML VIAL IVP SCH (16:00)
[2018-09-30 16:08] VITALS: BP 128/95
[2018-09-30] MEDS ORDERED: DULOXETINE HCL 20 MG CAPSULE.DR PO SCH (17:00)
[2018-09-30] MEDS ORDERED: CARVEDILOL 3.125 MG TABLET PO SCH (17:00)
[2018-09-30] MEDS ORDERED: INSULIN LISPRO/ASPART 100 UNIT/ML CARTRIDGE SQ SCH (17:30)
[2018-09-30] MEDS ORDERED: NITROGLYCERIN 30 GM TUBE TP SCH (21:00)
[2018-09-30] MEDS ORDERED: INSULIN GLARGINE, 100 UNIT/ML CARTRIDGE SQ SCH (22:00)
[2018-10-01] MEDS ORDERED: PANTOPRAZOLE 40 MG TABLET.DR PO SCH (07:30)
[2018-10-01] MEDS ORDERED: ASPIRIN EC 81 MG TABLET.DR PO SCH (09:00)
[2018-10-01] MEDS ORDERED: BENAZEPRIL HCL 20 MG TABLET PO SCH (09:00)
[2018-10-01] MEDS ORDERED: FLUTICASONE/VILANTEROL 1 EACH BLST.W.DEV IH SCH (09:00)
[2018-10-01] MEDS ORDERED: POTASSIUM CHLORIDE 20 MEQ TAB.PRT.SR PO SCH (09:00)
[2018-10-01] MEDS ORDERED: FUROSEMIDE 40 MG TABLET PO SCH (09:00)
== END 2018-09-30 18:10 | disposition home or self-care (01) | DRG 194 ==
LOC: TELE1 09-30 02:47
PROVIDERS: ADMIT Nurse Practitioner Acute Care; ATTEND Nurse Practitioner Acute Care
DX: I13.0 Hypertensive heart and chronic kidney disease with heart failure and stage 1 through stage 4 chronic kidney disease, or unspecified chronic kidney disease (principal); N17.0 Acute kidney failure with tubular necrosis; E11.22 Type 2 diabetes mellitus with diabetic chronic kidney disease; D69.6 Thrombocytopenia, unspecified; E11.42 Type 2 diabetes mellitus with diabetic polyneuropathy; J90 Pleural effusion, not elsewhere classified; E11.65 Type 2 diabetes mellitus with hyperglycemia; E83.42 Hypomagnesemia; I50.43 Acute on chronic combined systolic (congestive) and diastolic (congestive) heart failure; K59.09 Other constipation; N18.9 Chronic kidney disease, unspecified; M19.90 Unspecified osteoarthritis, unspecified site; Z82.49 Family history of ischemic heart disease and other diseases of the circulatory system; D64.9 Anemia, unspecified; E78.5 Hyperlipidemia, unspecified; Z72.0 Tobacco use; Z91.14 Patient's other noncompliance with medication regimen; F12.90 Cannabis use, unspecified, uncomplicated; K66.8 Other specified disorders of peritoneum; R18.8 Other ascites; Z79.4 Long term (current) use of insulin; Z79.84 Long term (current) use of oral hypoglycemic drugs; Z79.899 Other long term (current) drug therapy
CPT/HCPCS: 36415; 71045-TC; 80048-TC; 80061-TC; 82962-TC; 83735-TC; 83880; 84100-TC; 84443-TC; 84484-TC; 85025-TC; 87081-TC; G0378; J1815; J3490